=== PATIENT | male | born 1965 | race African-American/Black ===

== ENCOUNTER 2019-03-22 17:59 | Emergency (ER) | payer BC ==
--- NOTE | 2019-03-22 18:55 | RAD ---
Chest 2 views HISTORY: Chest pain. FINDINGS: Cardiac silhouette is magnified by projection. Pulmonary vasculature is unremarkable. Media stinum is midline. No space consolidation, pneumothorax, or pleural fluid. Ossification of the anterior longitudinal ligament of the thoracic spine on the lateral view is consistent with diffuse i diopathic skeletal hyperostosis. environmental monitoring specialist leads overlie the chest. IMPRESSION: No active cardiopulmonary abnormalities are demonstrated.
[2019-03-22 19:21] LABS: #Eosinphils 0.1 thou/uL (0.0-0.7); #Lymphocytes 2.2 thou/uL (1.20-3.40); #Monocytes 0.5 thou/uL (0.11-0.59); #Neutrophils 2.1 thou/uL (1.40-6.50); %Basophils 0.9 % (0.0-1.0); %Eosinophils 1.5 % (0.0-10.0); %Monocytes 9.4 % (0.0-10.0); %Neutrophils 43.2 % (42.0-75.0); Hemoglobin 12.7 g/dL (14.0-18.0); Mean Corpuscular HGB CONC 34.2 g/dL (32.0-36.0); Mean Corpuscular Hemoglobin 29.7 pg (27.0-31.0); Mean Corpuscular Volume 86.9 fL (78.0-98.0); Platelet Count 185 thou/uL (130-400); RBC Distribution Width 11.9 % (11.5-14.5); Red Blood Cell (RBC) Count 4.28 mill/uL (4.70-6.10); White Blood Cell (WBC) Count 4.9 thou/uL (4.8-10.8)
[2019-03-22 19:34] LABS: ALT (SGPT) 19 U/L (8-55); AST (SGOT) 18 U/L (5-34); Albumin 3.9 g/dL (3.5-5.0); Alkaline Phosphatase 95 U/L (40-150); Anion Gap 13 mmol/L (10-20); BUN (Urea Nitrogen) 15 mg/dL (8.4-25.7); Bilirubin, Total 0.6 mg/dL (0.2-1.2); Calc. Creatinine Clearance 0 mL/min (70-130); Calcium 9.1 mg/dL (7.8-10.44); Carbon Dioxide 27 mmol/L (22-29); Chloride 103 mmol/L (98-107); Estimated GFR-MDRD 60; Globulin 3.7 g/dL (2.4-3.5); Glucose 109 mg/dL (70-105); Lipase 34 U/L (8-78); Potassium 3.3 mmol/L (3.5-5.1); Protein, Total 7.6 g/dL (6.0-8.3); Sodium 140 mmol/L (136-145)
[2019-03-22] MEDS ORDERED: Nitroglycerin 2% Ointment 1 INCH/1 GM Packet ONE (19:45)
[2019-03-22] MEDS ORDERED: Aspirin Chewable 81 MG TAB ONE (19:45)
[2019-03-22 20:25] LABS: Troponin I Less than 0.010 ng/mL (< 0.028)
--- NOTE | 2019-03-25 14:44 | EKG ---
Test Reason : Blood Pressure : / mmHG Vent. Rate : 052 BPM Atrial Rate : 052 BPM P-R Int : 184 ms QRS Dur : 098 ms QT Int : 426 ms P-R-T Axes : 047 021 -08 degrees QTc Int : 396 ms Sinus bradycardia Inverted T in III Otherwise normal ECG Confirmed by GAEL IYER, KATJA ([id number]), associate entertainment editor RYAN ORTIZ ([id number] on 03/25/2019 2:44:26 PM Referred By: Confirmed By:KATJA MAYO MD
== END 2019-03-22 20:45 | disposition home or self-care (01) ==
LOC: SCSER 17:59
DX: R07.89 Other chest pain (principal); E78.5 Hyperlipidemia, unspecified; I10 Essential (primary) hypertension; F17.210 Nicotine dependence, cigarettes, uncomplicated
CPT/HCPCS: 71046; 80053; 83690; 83880; 84484; 85025; 93005

== ENCOUNTER 2020-09-24 08:32 | Outpatient (CLI) | payer BC | END 2020-09-24 08:33 | disposition home or self-care (01) | LOC: BICMAMMO 08:32 | PROVIDERS: ATTEND Family Medicine | DX: N63.20 Unspecified lump in the left breast, unspecified quadrant (principal) | CPT/HCPCS: 77066; G0279 ==

== ENCOUNTER 2021-03-29 07:48 | Outpatient (CLI) | payer BC | END 2021-03-29 07:49 | disposition home or self-care (01) | LOC: BICULT 07:48 | PROVIDERS: ATTEND Internal Medicine Nephrology | DX: N18.30 Chronic kidney disease, stage 3 unspecified (principal) | CPT/HCPCS: 76770; 93975 ==

== ENCOUNTER 2021-06-30 08:36 | Emergency (ER) | payer BC, OTHER ==
[2021-06-30] MEDS ORDERED: Ketorolac Tromethamine 30 MG/ML VIAL ONE (09:07)
== END 2021-06-30 09:32 | disposition home or self-care (01) ==
LOC: ERS 08:36
DX: M25.511 Pain in right shoulder (principal); E78.5 Hyperlipidemia, unspecified; I10 Essential (primary) hypertension; F17.290 Nicotine dependence, other tobacco product, uncomplicated; Z79.899 Other long term (current) drug therapy
CPT/HCPCS: 96372; J1885

== ENCOUNTER 2021-08-02 09:24 | Outpatient (CLI) | payer BC ==
[2021-08-02] MEDS ORDERED: Iopamidol 370 76% 100 ML VIAL ONE (13:41)
== END 2021-08-02 09:25 | disposition home or self-care (01) ==
LOC: CT 09:24
PROVIDERS: ATTEND Urology
DX: N28.89 Other specified disorders of kidney and ureter (principal); N62 Hypertrophy of breast
CPT/HCPCS: 71260; 74160; 78306; A9503; Q9967

== ENCOUNTER 2021-08-24 11:02 | Outpatient (CLI) | payer BC ==
[2021-08-25 00:13] LABS: SARS-CoV-2 PCR by NAA Not Detected (NotDetected)
== END 2021-08-24 11:03 | disposition home or self-care (01) ==
LOC: LABBT 11:02
PROVIDERS: ATTEND Urology
DX: Z01.818 Encounter for other preprocedural examination (principal); Z12.5 Encounter for screening for malignant neoplasm of prostate; N28.9 Disorder of kidney and ureter, unspecified; N20.0 Calculus of kidney; N40.1 Benign prostatic hyperplasia with lower urinary tract symptoms; R35.0 Frequency of micturition; I12.9 Hypertensive chronic kidney disease with stage 1 through stage 4 chronic kidney disease, or unspecified chronic kidney disease; N18.9 Chronic kidney disease, unspecified; N28.89 Other specified disorders of kidney and ureter; R74.8 Abnormal levels of other serum enzymes; N62 Hypertrophy of breast; Z20.822 Contact with and (suspected) exposure to COVID-19
CPT/HCPCS: 71046; 80048; 81001; 85027; 85610; 85730; 86850; 86900; 86901; 87086; 93005; 93010; U0003; U0005

== ENCOUNTER 2021-08-24 11:15 | Inpatient (IN) | payer BC ==
[2021-08-23 12:59] VITALS: BMI 35.2
[2021-08-24 12:10] LABS: Hemoglobin 12.5 g/dL (13.5-17.5); Mean Corpuscular HGB CONC 32.9 g/dL (32.0-36.0); Mean Corpuscular Volume 85.2 fl (81.2-95.1); Mean Platelet Volume 10.9 fl (7.4-10.4); Platelet Count 208 10x3/uL (150-450); RBC Distribution Width 13.2 % (11.5-14.5); Red Blood Cell (RBC) Count 4.46 10x6/uL (4.32-5.72)
[2021-08-24 12:31] LABS: Anion Gap 12 mmol/L (10-20); BUN (Urea Nitrogen) 11 mg/dL (8.4-25.7); Calc. Creatinine Clearance 0 mL/min (70-130); Carbon Dioxide 27 mmol/L (22-29); Chloride 103 mmol/L (98-107); Glucose 122 mg/dL (70-105); Potassium 3.3 mmol/L (3.5-5.1); Sodium 139 mmol/L (136-145)
[2021-08-24 12:57] LABS: INR-International Normal Ratio 0.9; PTT 24.1 sec (22.0-33.0); Prothrombin Time 10.4 sec (9.5-12.1)
[2021-08-24 13:02] LABS: Bilirubin Neg (Negative); Blood, Urine 10 (Negative); Clarity Clear (Clear); Glucose, Urine (Dipstick) Normal (Negative); Ketone, Urine Negative (Negative); Leukocyte Negative (Negative); Nitrite Negative (Negative); Protein, Urine (Dipstick) 30 mg/dl (Neg-Trace); Urobilinogen Normal mg/dL (Less than 2)
[2021-08-24 13:10] LABS: Bacteria/HPF Rare-Few HPF (None Seen); Mucous/LPF Few LPF (<2+); RBC/HPF 0-3 HPF (0-3); Squamous Epithelial 0-3 HPF (0-3); Transitional Epithelial 0-3 HPF (None Seen); WBC/HPF None Seen HPF (0-3)
[2021-08-29] MEDS ORDERED: ceFAZolin 2 GM/DEX 5% 100 ML BAG ONE (06:20)
[2021-08-29] MEDS ORDERED: Levofloxacin 500 mg/D5W 100 ml Premix Bag ONE (06:21)
[2021-08-29] MEDS ORDERED: SUGAMMADEX SODIUM 200 MG/2 ML VIAL ONE (06:24)
[2021-08-29] MEDS ORDERED: Famotidine/PF 20 mg/2ml Vial ONE (06:24)
[2021-08-29] MEDS ORDERED: Fentanyl 100 MCG/2 ML VIAL ONE ×3 (06:24→07:34)
[2021-08-29] MEDS ORDERED: Gentamicin 80 MG/2 ML VIAL ONE ×2 (06:35→06:43)
[2021-08-29] MEDS ORDERED: Methylene Blue 50 MG/10 ML AMPUL ONE (06:35)
[2021-08-29] MEDS ORDERED: Midazolam HCl 2 mg/2 ml Vial ONE (06:54)
[2021-08-29] MEDS ORDERED: Labetalol HCl 100 MG/20 ML VIAL ONE (07:10)
[2021-08-29] MEDS ORDERED: Dexamethasone 20 MG/5 ML VIAL ONE (07:10)
[2021-08-29] MEDS ORDERED: Lidocaine 1.5% w/Epi 1:200K 30 ML VIAL (Epid Use) ONE (07:10)
[2021-08-29] MEDS ORDERED: PROPOFOL 200 MG/20 ML VIAL ONE (07:10)
[2021-08-29] MEDS ORDERED: Lidocaine 1% PF 5 ML VIAL ONE ×2 (07:10)
[2021-08-29] MEDS ORDERED: Phenylephrine 10 MG/ML VIAL ONE ×2 (07:10→07:22)
[2021-08-29] MEDS ORDERED: Rocuronium Bromide 10 MG/ML (10ML VIAL) ONE (07:10)
[2021-08-29] MEDS ORDERED: Ondansetron PF 4 MG/2 ML Vial ONE (07:10)
[2021-08-29] MEDS ORDERED: Bupivacaine 0.25% 10 ML VIAL ONE ×2 (07:16)
[2021-08-29] MEDS ORDERED: Naloxone HCl 0.4 mg/ml Vial IVP PRN (08:00)
[2021-08-29] MEDS ORDERED: HYDROcodone/Acetaminophen 5/325 mg Tablet PO PRN (08:00)
[2021-08-29] MEDS ORDERED: diphenhydrAMINE 50 MG/ML VIAL IVP PRN ×2 (08:00→09:53)
[2021-08-29] MEDS ORDERED: Naloxone HCl 0.4 mg/ml Vial IV PRN (08:00)
[2021-08-29] MEDS ORDERED: Hydrocerin (Eucerin) Cream 120 gm Jar TOP PRN (08:00)
[2021-08-29] MEDS ORDERED: diphenhydrAMINE 50 MG/ML VIAL IM PRN (08:00)
[2021-08-29] MEDS ORDERED: Promethazine HCl 25 MG SUPP PR PRN (08:00)
[2021-08-29] MEDS ORDERED: Bupivacaine 0.25% 10 ML VIAL EPIDURAL PRN (08:00)
[2021-08-29] MEDS ORDERED: traMADol HCl 50 MG TAB PO PRN ×2 (08:00)
[2021-08-29] MEDS ORDERED: Promethazine HCl 25 MG/ML VIAL IM PRN ×2 (08:00→09:09)
[2021-08-29] MEDS ORDERED: Promethazine HCl 25 MG/ML VIAL IVPB PRN (09:09)
[2021-08-29] MEDS ORDERED: HYDROmorphone 2 MG/ML VIAL SLOW IVP PRN (09:09)
[2021-08-29] MEDS ORDERED: Meperidine HCl/PF 25 MG/ML VIAL SLOW IVP PRN (09:09)
[2021-08-29] MEDS ORDERED: Ondansetron PF 4 MG/2 ML Vial IVP PRN (09:53)
[2021-08-29] MEDS ORDERED: Mag-Al 1200 mg/1200 mg/30 ML UDCUP PO PRN (09:53)
[2021-08-29] MEDS ORDERED: D5 1/2 NS w/20 mEq KCL 1,000 ML IV SCH (10:00)
[2021-08-29] MEDS ORDERED: Sodium Chloride 0.9% 1,000 ML IV SCH (10:15)
[2021-08-29 10:29] LABS: #Basophils 0.1 thou/uL (0.0-0.2); #Lymphocytes 1.8 thou/uL (1.20-3.40); #Monocytes 0.6 thou/uL (0.11-0.59); #Neutrophils 5.5 thou/uL (1.40-6.50); %Basophils 0.6 % (0.0-1.0); %Eosinophils 0.3 % (0.0-10.0); %Lymphocytes 22.4 % (21.0-51.0); %Monocytes 7.8 % (0.0-10.0); %Neutrophils 68.9 % (42.0-75.0); Hemoglobin 11.8 g/dL (14.0-18.0); Mean Corpuscular Volume 88.3 fL (78.0-98.0); Platelet Count 137 thou/uL (130-400); RBC Distribution Width 12.3 % (11.5-14.5); Red Blood Cell (RBC) Count 3.93 mill/uL (4.70-6.10)
[2021-08-29 10:51] LABS: Anion Gap 15 mmol/L (10-20); BUN (Urea Nitrogen) 18 mg/dL (8.4-25.7); Calc. Creatinine Clearance 66 mL/min (70-130); Calcium 8.3 mg/dL (7.8-10.44); Carbon Dioxide 28 mmol/L (22-29); Chloride 102 mmol/L (98-107); Glucose 147 mg/dL (70-105); Potassium 3.1 mmol/L (3.5-5.1); Sodium 142 mmol/L (136-145)
[2021-08-29] MEDS: HYDROcodone/Acetaminophen 5/325 mg Tablet PO PRN ×2 (12:26→20:41)
[2021-08-29] MEDS: NS 0.9% w/ 20 MEQ KCL 1,000 ML IV SCH ×2 (12:27→23:46)
[2021-08-29] MEDS ORDERED: Potassium Chloride 20 MEQ TAB PO SCH (12:30)
[2021-08-29] MEDS ORDERED: Non-Formulary Item 1 EACH (Hydralazine Hcl [Hydralazine Hcl] 50 MG Tablet) PO SCH (15:00)
[2021-08-29] MEDS: hydrALAZINE 25 MG TAB PO SCH ×2 (15:51→20:08)
[2021-08-29] MEDS: CEFAZOLIN 1 GM in Sodium Chloride 0.9% 100 ML IVPB SCH ×2 (15:51→21:30)
[2021-08-29] MEDS ORDERED: cloNIDine 0.1 MG TAB PO SCH (19:45)
[2021-08-29] MEDS: Rosuvastatin 20 MG TAB PO SCH (20:07)
[2021-08-29] MEDS: Docusate 100 MG CAP PO SCH (20:07)
[2021-08-29] MEDS: Famotidine/PF 20 mg/2ml Vial SLOW IVP SCH (20:07)
[2021-08-29] MEDS: Carvedilol 25 MG TAB PO SCH (20:08)
[2021-08-29] MEDS: Ondansetron PF 4 MG/2 ML Vial IVP PRN (21:25)
[2021-08-29] MEDS: fentaNYL Citrate/PF 500 MCG, Bupivacaine 10 ML in Sodium Chloride 0.9% 80 ML EPIDURAL SCH (21:44)
[2021-08-30] MEDS: CEFAZOLIN 1 GM in Sodium Chloride 0.9% 100 ML IVPB SCH ×2 (05:56→14:23)
[2021-08-30 06:22] LABS: #Lymphocytes 1.4 thou/uL (1.20-3.40); #Monocytes 0.8 thou/uL (0.11-0.59); #Neutrophils 3.9 thou/uL (1.40-6.50); %Basophils 0.1 % (0.0-1.0); %Eosinophils 0.1 % (0.0-10.0); %Lymphocytes 22.5 % (21.0-51.0); %Monocytes 12.8 % (0.0-10.0); %Neutrophils 64.5 % (42.0-75.0); Hemoglobin 11.4 g/dL (14.0-18.0); Mean Corpuscular HGB CONC 34.1 g/dL (32.0-36.0); Mean Corpuscular Volume 87.9 fL (78.0-98.0); Mean Platelet Volume 8.3 fL (7.4-10.4); Platelet Count 136 thou/uL (130-400); RBC Distribution Width 12.2 % (11.5-14.5); White Blood Cell (WBC) Count 6.1 thou/uL (4.8-10.8)
[2021-08-30] MEDS: NS 0.9% w/ 20 MEQ KCL 1,000 ML IV SCH ×3 (06:42→21:30)
[2021-08-30 06:46] LABS: Anion Gap 14 mmol/L (10-20); BUN (Urea Nitrogen) 24 mg/dL (8.4-25.7); Calc. Creatinine Clearance 45 mL/min (70-130); Calcium 8.4 mg/dL (7.8-10.44); Carbon Dioxide 28 mmol/L (22-29); Chloride 101 mmol/L (98-107); Glucose 127 mg/dL (70-105); Potassium 3.6 mmol/L (3.5-5.1); Sodium 139 mmol/L (136-145)
[2021-08-30] MEDS: fentaNYL Citrate/PF 500 MCG, Bupivacaine 10 ML in Sodium Chloride 0.9% 80 ML EPIDURAL SCH ×2 (07:59→17:15)
[2021-08-30] MEDS: hydrALAZINE 25 MG TAB PO SCH ×3 (08:09→21:10)
[2021-08-30] MEDS: Docusate 100 MG CAP PO SCH ×2 (08:10→21:10)
[2021-08-30] MEDS: Carvedilol 25 MG TAB PO SCH ×2 (08:10→21:10)
[2021-08-30] MEDS: Potassium Chloride 20 MEQ TAB PO SCH (08:10)
[2021-08-30] MEDS: Famotidine/PF 20 mg/2ml Vial SLOW IVP SCH (08:10)
[2021-08-30] MEDS ORDERED: Amlodipine 5 MG TAB PO SCH ×2 (09:00→13:03)
[2021-08-30] MEDS: HYDROcodone/Acetaminophen 5/325 mg Tablet PO PRN ×3 (09:55→23:31)
[2021-08-30] MEDS ORDERED: Amlodipine 10 MG TAB PO SCH (13:15)
[2021-08-30] MEDS: Ondansetron PF 4 MG/2 ML Vial IVP PRN (15:01)
[2021-08-30] MEDS: Dextrose 5 % And 0.9 % NaCl 1,000 ML IV SCH ×2 (19:32→21:09)
[2021-08-30] MEDS: Rosuvastatin 20 MG TAB PO SCH (21:09)
[2021-08-31] MEDS: Dextrose 5 % And 0.9 % NaCl 1,000 ML IV SCH ×2 (02:36→02:58)
[2021-08-31] MEDS: fentaNYL Citrate/PF 500 MCG, Bupivacaine 10 ML in Sodium Chloride 0.9% 80 ML EPIDURAL SCH ×2 (02:36→14:23)
[2021-08-31 04:28] LABS: #Lymphocytes 1.2 thou/uL (1.20-3.40); #Monocytes 0.6 thou/uL (0.11-0.59); #Neutrophils 4.9 thou/uL (1.40-6.50); %Basophils 0.5 % (0.0-1.0); %Eosinophils 0.2 % (0.0-10.0); %Lymphocytes 17.9 % (21.0-51.0); %Monocytes 8.5 % (0.0-10.0); %Neutrophils 72.9 % (42.0-75.0); Hemoglobin 10.6 g/dL (14.0-18.0); Mean Corpuscular HGB CONC 34.5 g/dL (32.0-36.0); Mean Corpuscular Hemoglobin 30.6 pg (27.0-31.0); Mean Corpuscular Volume 88.6 fL (78.0-98.0); Mean Platelet Volume 8.4 fL (7.4-10.4); Platelet Count 115 thou/uL (130-400); RBC Distribution Width 12.4 % (11.5-14.5); Red Blood Cell (RBC) Count 3.45 mill/uL (4.70-6.10); White Blood Cell (WBC) Count 6.7 thou/uL (4.8-10.8)
[2021-08-31 04:55] LABS: Anion Gap 11 mmol/L (10-20); BUN (Urea Nitrogen) 29 mg/dL (8.4-25.7); Calc. Creatinine Clearance 39 mL/min (70-130); Calcium 8.2 mg/dL (7.8-10.44); Carbon Dioxide 27 mmol/L (22-29); Chloride 104 mmol/L (98-107); Glucose 143 mg/dL (70-105); Potassium 3.8 mmol/L (3.5-5.1); Sodium 138 mmol/L (136-145)
[2021-08-31] MEDS: Acetaminophen 500 MG TAB PO PRN ×2 (08:19→16:08)
[2021-08-31] MEDS: hydrALAZINE 25 MG TAB PO SCH ×3 (08:21→20:26)
[2021-08-31] MEDS: Docusate 100 MG CAP PO SCH ×2 (08:22→20:26)
[2021-08-31] MEDS: Potassium Chloride 20 MEQ TAB PO SCH (08:22)
[2021-08-31] MEDS: Carvedilol 25 MG TAB PO SCH ×2 (08:23→20:26)
[2021-08-31] MEDS: Famotidine/PF 20 mg/2ml Vial SLOW IVP SCH (08:23)
[2021-08-31] MEDS: Amlodipine 5 MG TAB PO SCH (08:23)
[2021-08-31] MEDS ORDERED: Amlodipine 10 MG TAB PO SCH ×2 (09:00)
[2021-08-31] MEDS ORDERED: Albumin 25% 25 GM/100 ML BOT IVPB SCH (09:00)
[2021-08-31] MEDS: Ondansetron PF 4 MG/2 ML Vial IVP PRN (10:52)
[2021-08-31] MEDS: Sodium Chloride 0.45% 1,000 ML IV SCH ×2 (11:01→17:15)
[2021-08-31] MEDS: Albumin 25% 25 GM/100 ML BOT IVPB SCH ×2 (16:00→20:26)
[2021-08-31 17:28] LABS: SARS-CoV-2 PCR by NAA DETECTED (NotDetected)
[2021-08-31] MEDS: Rosuvastatin 20 MG TAB PO SCH (20:26)
[2021-09-01] MEDS: fentaNYL Citrate/PF 500 MCG, Bupivacaine 10 ML in Sodium Chloride 0.9% 80 ML EPIDURAL SCH ×2 (00:22→14:48)
[2021-09-01] MEDS: Acetaminophen 500 MG TAB PO PRN ×3 (00:37→14:50)
[2021-09-01] MEDS: Albumin 25% 25 GM/100 ML BOT IVPB SCH (03:11)
[2021-09-01] MEDS: Sodium Chloride 0.45% 1,000 ML IV SCH ×2 (05:03→16:18)
[2021-09-01 07:04] LABS: #Lymphocytes 1.4 thou/uL (1.20-3.40); #Monocytes 0.4 thou/uL (0.11-0.59); %Basophils 0.1 % (0.0-1.0); %Eosinophils 0.2 % (0.0-10.0); %Lymphocytes 15.8 % (21.0-51.0); %Monocytes 4.5 % (0.0-10.0); %Neutrophils 79.4 % (42.0-75.0); Mean Corpuscular HGB CONC 34.1 g/dL (32.0-36.0); Mean Corpuscular Hemoglobin 30.1 pg (27.0-31.0); Mean Corpuscular Volume 88.2 fL (78.0-98.0); Mean Platelet Volume 8.4 fL (7.4-10.4); Platelet Count 109 thou/uL (130-400); RBC Distribution Width 12.5 % (11.5-14.5); Red Blood Cell (RBC) Count 3.33 mill/uL (4.70-6.10); White Blood Cell (WBC) Count 8.8 thou/uL (4.8-10.8)
[2021-09-01 07:30] LABS: ALT (SGPT) 21 U/L (8-55); AST (SGOT) 51 U/L (5-34); Albumin 3.8 g/dL (3.5-5.0); Alkaline Phosphatase 67 U/L (40-110); Anion Gap 12 mmol/L (10-20); BUN (Urea Nitrogen) 36 mg/dL (8.4-25.7); Bilirubin, Total 0.5 mg/dL (0.2-1.2); Calc. Creatinine Clearance 31 mL/min (70-130); Calcium 8.8 mg/dL (7.8-10.44); Carbon Dioxide 27 mmol/L (22-29); Chloride 105 mmol/L (98-107); Glucose 104 mg/dL (70-105); Protein, Total 6.8 g/dL (6.0-8.3); Sodium 140 mmol/L (136-145)
[2021-09-01] MEDS: Docusate 100 MG CAP PO SCH ×2 (08:28→20:05)
[2021-09-01] MEDS: Carvedilol 25 MG TAB PO SCH ×2 (08:28→20:06)
[2021-09-01] MEDS: Potassium Chloride 20 MEQ TAB PO SCH (08:28)
[2021-09-01] MEDS: Amlodipine 5 MG TAB PO SCH (08:28)
[2021-09-01] MEDS: hydrALAZINE 25 MG TAB PO SCH ×3 (08:28→20:06)
[2021-09-01] MEDS: Famotidine/PF 20 mg/2ml Vial SLOW IVP SCH (08:28)
[2021-09-01] MEDS ORDERED: Enoxaparin Sodium 30 MG/0.3 ML SYRINGE SC SCH (09:00)
[2021-09-01] MEDS ORDERED: Dexamethasone 4 MG TAB PO SCH (13:30)
[2021-09-01] MEDS: Sodium Chloride 0.9% 1,000 ML IV SCH (16:17)
[2021-09-01] MEDS: Dexamethasone 4 MG TAB PO SCH (17:08)
[2021-09-01 17:54] LABS: Bilirubin Negative (Negative); Blood, Urine 1+ (Negative); Clarity Turbid (Clear); Glucose, Urine (Dipstick) Normal (Negative); Ketone, Urine Negative (Negative); Leukocyte Negative Leu/uL (Negative); Nitrite Negative (Negative); Protein, Urine (Dipstick) 70 mg/dL (Neg-Trace); RBC/HPF 0-3 HPF (0-3); Specific Gravity, Urine 1.014 (1.002-1.036); Squamous Epithelial None Seen HPF (0-3); Urobilinogen Normal mg/dL (Less than 2); WBC/HPF 0-3 HPF (0-3); pH, Urine 5.5 (5.0-9.0)
[2021-09-01 17:55] LABS: Bacteria/HPF 1+ HPF (None Seen)
[2021-09-01] MEDS ORDERED: Naloxone HCl 0.4 mg/ml Vial IVP SCH (18:30)
[2021-09-01 18:51] LABS: Actual Bicarbonate (HCO3a) 25.6 mEq/L (22-28); Base Excess (BEa) 0.2 mEq/L (-2.0 to +3.0); CO2 Tension 44.6 mmHg (35.0-45.0); Calcium, Ionized (arterial) 1.15 mmol/L (1.12-1.30); Carboxyhemoglobin (COHb) 0.3 gm% (0.0-3.0); Hemoglobin (Hb) 11.2 g/dL (14.0-18.0); O2 Tension (PaO2), arterial 93.8 mmHg (80.0-100.0); Potassium - ABG Lab 4.04 mmol/L (3.70-5.30); pH, Arterial 7.38 (7.35-7.45)
[2021-09-01 18:52] LABS: Puncture Site RRA
[2021-09-01] MEDS: Rosuvastatin 20 MG TAB PO SCH (20:05)
[2021-09-01] MEDS ORDERED: Heparin 5,000 UNITS/ML VIAL SC SCH (21:00)
[2021-09-02] MEDS: Bupivacaine 10 ML in Sodium Chloride 0.9% 90 ML EPIDURAL SCH ×2 (01:43→14:55)
[2021-09-02] MEDS: Sodium Chloride 0.9% 1,000 ML IV SCH ×4 (03:39→23:54)
[2021-09-02] MEDS: Docusate 100 MG CAP PO SCH ×2 (08:03→20:33)
[2021-09-02] MEDS: Amlodipine 5 MG TAB PO SCH (08:03)
[2021-09-02] MEDS: Carvedilol 25 MG TAB PO SCH ×2 (08:03→20:33)
[2021-09-02] MEDS: Potassium Chloride 20 MEQ TAB PO SCH (08:03)
[2021-09-02] MEDS: Heparin 5,000 UNITS/ML VIAL SC SCH ×2 (08:06→20:34)
[2021-09-02] MEDS: Famotidine/PF 20 mg/2ml Vial SLOW IVP SCH (08:06)
[2021-09-02] MEDS: hydrALAZINE 25 MG TAB PO SCH ×3 (08:06→20:33)
[2021-09-02] MEDS: Dexamethasone 4 MG TAB PO SCH ×2 (08:06→17:30)
[2021-09-02 09:08] LABS: Hemoglobin 10.6 g/dL (14.0-18.0); Mean Corpuscular HGB CONC 33.5 g/dL (32.0-36.0); Mean Corpuscular Hemoglobin 29.6 pg (27.0-31.0); Mean Corpuscular Volume 88.2 fL (78.0-98.0); Mean Platelet Volume 9.1 fL (7.4-10.4); Platelet Count 142 thou/uL (130-400); RBC Distribution Width 12.5 % (11.5-14.5); Red Blood Cell (RBC) Count 3.59 mill/uL (4.70-6.10); White Blood Cell (WBC) Count 11.8 thou/uL (4.8-10.8)
[2021-09-02 09:22] LABS: Band 34 % (5-11); Lymphocytes 12 % (21-51); MDiff Complete? YES; Neutrophil 54 % (42-75); Platelet Morphology Comment Appears Adequate; Polychromasia SLIGHT = 2-3 cells (100X) (0-2/hpf)
[2021-09-02 09:25] LABS: Anion Gap 15 mmol/L (10-20); BUN (Urea Nitrogen) 46 mg/dL (8.4-25.7); Calc. Creatinine Clearance 29 mL/min (70-130); Calcium 9.3 mg/dL (7.8-10.44); Carbon Dioxide 22 mmol/L (22-29); Chloride 107 mmol/L (98-107); Glucose 156 mg/dL (70-105); Potassium 4.1 mmol/L (3.5-5.1); Sodium 140 mmol/L (136-145)
[2021-09-02] MEDS: Rosuvastatin 20 MG TAB PO SCH (20:33)
[2021-09-03] MEDS: Bupivacaine 10 ML in Sodium Chloride 0.9% 90 ML EPIDURAL SCH ×3 (00:28→12:20)
[2021-09-03] MEDS: Ondansetron PF 4 MG/2 ML Vial IVP PRN (01:10)
[2021-09-03 07:37] LABS: Anion Gap 14 mmol/L (10-20); BUN (Urea Nitrogen) 53 mg/dL (8.4-25.7); Calc. Creatinine Clearance 32 mL/min (70-130); Calcium 9.1 mg/dL (7.8-10.44); Carbon Dioxide 22 mmol/L (22-29); Chloride 108 mmol/L (98-107); Glucose 181 mg/dL (70-105); Sodium 140 mmol/L (136-145)
[2021-09-03 07:50] LABS: Hemoglobin 11.3 g/dL (14.0-18.0); Mean Corpuscular HGB CONC 34.6 g/dL (32.0-36.0); Mean Corpuscular Hemoglobin 30.3 pg (27.0-31.0); Mean Corpuscular Volume 87.4 fL (78.0-98.0); Mean Platelet Volume 8.7 fL (7.4-10.4); Platelet Count 211 thou/uL (130-400); RBC Distribution Width 12.6 % (11.5-14.5); Red Blood Cell (RBC) Count 3.74 mill/uL (4.70-6.10)
[2021-09-03] MEDS: Amlodipine 5 MG TAB PO SCH (08:31)
[2021-09-03] MEDS: hydrALAZINE 25 MG TAB PO SCH ×3 (08:31→20:48)
[2021-09-03] MEDS: Dexamethasone 4 MG TAB PO SCH ×2 (08:31→17:53)
[2021-09-03] MEDS: Sodium Chloride 0.9% 1,000 ML IV SCH (08:32)
[2021-09-03] MEDS: Potassium Chloride 20 MEQ TAB PO SCH (08:32)
[2021-09-03] MEDS: Famotidine/PF 20 mg/2ml Vial SLOW IVP SCH (08:32)
[2021-09-03] MEDS: Carvedilol 25 MG TAB PO SCH ×2 (08:32→20:47)
[2021-09-03] MEDS: Heparin 5,000 UNITS/ML VIAL SC SCH ×2 (08:32→20:48)
[2021-09-03] MEDS: Docusate 100 MG CAP PO SCH ×2 (08:32→20:47)
[2021-09-03 08:58] LABS: Band 22 % (5-11); Lymphocytes 9 % (21-51); MDiff Complete? YES; Monocytes 4 % (0-10); Myelocyte 1 % (0-0); Neutrophil 62 % (42-75); Platelet Morphology Comment Appears Adequate; RBC Morphology Normal; Reactive Lymphocytes 2 % (0-10)
[2021-09-03] MEDS ORDERED: Furosemide 100 MG/10 ML VIAL SLOW IVP SCH (14:45)
[2021-09-03] MEDS: ALPRAZolam 0.25 MG TAB PO PRN (15:34)
[2021-09-03] MEDS: Rosuvastatin 20 MG TAB PO SCH (20:47)
[2021-09-04] MEDS: Heparin 5,000 UNITS/ML VIAL SC SCH ×2 (08:21→20:56)
[2021-09-04] MEDS: hydrALAZINE 25 MG TAB PO SCH ×3 (08:22→20:55)
[2021-09-04] MEDS: Docusate 100 MG CAP PO SCH ×2 (08:22→20:55)
[2021-09-04] MEDS: Potassium Chloride 20 MEQ TAB PO SCH (08:22)
[2021-09-04] MEDS: Dexamethasone 4 MG TAB PO SCH ×2 (08:22→17:10)
[2021-09-04] MEDS: Famotidine/PF 20 mg/2ml Vial SLOW IVP SCH (08:23)
[2021-09-04] MEDS: Bupivacaine 10 ML in Sodium Chloride 0.9% 90 ML EPIDURAL SCH ×2 (08:24→20:59)
[2021-09-04] MEDS: Carvedilol 25 MG TAB PO SCH ×2 (08:24→20:56)
[2021-09-04] MEDS: Amlodipine 5 MG TAB PO SCH (08:24)
[2021-09-04 12:05] LABS: Anion Gap 18 mmol/L (10-20); BUN (Urea Nitrogen) 67 mg/dL (8.4-25.7); Calc. Creatinine Clearance 28 mL/min (70-130); Calcium 9.1 mg/dL (7.8-10.44); Carbon Dioxide 21 mmol/L (22-29); Chloride 107 mmol/L (98-107); Glucose 165 mg/dL (70-105); Potassium 3.9 mmol/L (3.5-5.1); Sodium 142 mmol/L (136-145)
[2021-09-04 12:11] LABS: Hemoglobin 11.6 g/dL (14.0-18.0); Platelet Count 236 thou/uL (130-400)
[2021-09-04 12:16] LABS: Hemoglobin 11.6 g/dL (14.0-18.0); Mean Corpuscular HGB CONC 34.2 g/dL (32.0-36.0); Mean Corpuscular Hemoglobin 29.9 pg (27.0-31.0); Mean Corpuscular Volume 87.4 fL (78.0-98.0); Mean Platelet Volume 8.2 fL (7.4-10.4); Platelet Count 238 thou/uL (130-400); Red Blood Cell (RBC) Count 3.87 mill/uL (4.70-6.10); White Blood Cell (WBC) Count 16.1 thou/uL (4.8-10.8)
[2021-09-04 13:22] LABS: Band 10 % (5-11); Lymphocytes 6 % (21-51); MDiff Complete? YES; Metamyelocyte 2 % (0-0); Monocytes 3 % (0-10); Myelocyte 2 % (0-0); Neutrophil 77 % (42-75); Platelet Morphology Comment Appears Adequate; Polychromasia SLIGHT = 2-3 cells (100X) (0-2/hpf); Vacuoles SLIGHT
[2021-09-04] MEDS ORDERED: Albumin 25% 25 GM/100 ML BOT IVPB SCH (13:30)
[2021-09-04] MEDS: Albumin 25% 25 GM/100 ML BOT IVPB SCH ×2 (14:47→21:04)
[2021-09-04] MEDS: Rosuvastatin 20 MG TAB PO SCH (20:55)
[2021-09-04] MEDS: ALPRAZolam 0.25 MG TAB PO PRN (20:55)
[2021-09-05] MEDS: Albuterol 200 PUFF (6.7GM INHALER) INH SCH ×6 (02:46→21:50)
[2021-09-05] MEDS: Albumin 25% 25 GM/100 ML BOT IVPB SCH ×3 (02:46→14:04)
[2021-09-05 06:48] LABS: Hemoglobin 10.9 g/dL (14.0-18.0); Mean Corpuscular HGB CONC 35.2 g/dL (32.0-36.0); Mean Corpuscular Hemoglobin 30.4 pg (27.0-31.0); Mean Corpuscular Volume 86.3 fL (78.0-98.0); Mean Platelet Volume 8.4 fL (7.4-10.4); Platelet Count 228 thou/uL (130-400); RBC Distribution Width 12.9 % (11.5-14.5); Red Blood Cell (RBC) Count 3.59 mill/uL (4.70-6.10); White Blood Cell (WBC) Count 15.1 thou/uL (4.8-10.8)
[2021-09-05 06:56] LABS: Anion Gap 18 mmol/L (10-20); BUN (Urea Nitrogen) 71 mg/dL (8.4-25.7); Calc. Creatinine Clearance 26 mL/min (70-130); Calcium 9.2 mg/dL (7.8-10.44); Carbon Dioxide 22 mmol/L (22-29); Chloride 105 mmol/L (98-107); Glucose 177 mg/dL (70-105); Potassium 3.8 mmol/L (3.5-5.1); Sodium 141 mmol/L (136-145)
[2021-09-05 07:01] LABS: Anion Gap 17 mmol/L (10-20); BUN (Urea Nitrogen) 71 mg/dL (8.4-25.7); Calc. Creatinine Clearance 28 mL/min (70-130); Calcium 9.4 mg/dL (7.8-10.44); Carbon Dioxide 23 mmol/L (22-29); Chloride 106 mmol/L (98-107); Glucose 176 mg/dL (70-105); Potassium 3.7 mmol/L (3.5-5.1); Sodium 142 mmol/L (136-145)
[2021-09-05] MEDS ORDERED: HYDROcodone/Acetaminophen 10/325 mg Tablet PO PRN ×2 (07:32)
[2021-09-05] MEDS: Potassium Chloride 20 MEQ TAB PO SCH (08:20)
[2021-09-05] MEDS: Famotidine/PF 20 mg/2ml Vial SLOW IVP SCH (08:20)
[2021-09-05] MEDS: Docusate 100 MG CAP PO SCH ×2 (08:21→20:19)
[2021-09-05] MEDS: Carvedilol 25 MG TAB PO SCH ×2 (08:21→20:19)
[2021-09-05] MEDS: Amlodipine 5 MG TAB PO SCH (08:21)
[2021-09-05] MEDS: hydrALAZINE 25 MG TAB PO SCH ×3 (08:21→20:18)
[2021-09-05] MEDS: Dexamethasone 4 MG TAB PO SCH ×2 (08:22→17:26)
[2021-09-05] MEDS: Sodium Chloride 0.9% 1,000 ML IV SCH ×2 (09:11→17:25)
[2021-09-05 09:57] LABS: Hemoglobin 10.9 g/dL (14.0-18.0); Mean Corpuscular HGB CONC 34.6 g/dL (32.0-36.0); Mean Corpuscular Hemoglobin 30.1 pg (27.0-31.0); Mean Platelet Volume 8.3 fL (7.4-10.4); Platelet Count 239 thou/uL (130-400); RBC Distribution Width 12.9 % (11.5-14.5); Red Blood Cell (RBC) Count 3.63 mill/uL (4.70-6.10); White Blood Cell (WBC) Count 14.9 thou/uL (4.8-10.8)
[2021-09-05 09:57] LABS: Band 11 % (5-11); Lymphocytes 6 % (21-51); MDiff Complete? YES; Metamyelocyte 1 % (0-0); Monocytes 9 % (0-10); Myelocyte 1 % (0-0); Neutrophil 72 % (42-75); Platelet Morphology Comment Appears Adequate; Polychromasia SLIGHT = 2-3 cells (100X) (0-2/hpf)
[2021-09-05 10:00] LABS: Band 13 % (5-11); Lymphocytes 12 % (21-51); MDiff Complete? YES; Metamyelocyte 1 % (0-0); Monocytes 7 % (0-10); Neutrophil 66 % (42-75); Platelet Morphology Comment Appears Adequate; Polychromasia SLIGHT = 2-3 cells (100X) (0-2/hpf); Reactive Lymphocytes 1 % (0-10)
[2021-09-05] MEDS: ALPRAZolam 0.25 MG TAB PO PRN ×2 (10:45→20:19)
[2021-09-05] MEDS: Mometasone 200 MCG/Formoterol 5 MCG 120 PUFF INHALER INH SCH ×2 (10:57→17:27)
[2021-09-05 16:59] LABS: SARS-CoV-2 IgG Spike Ab Interp Non-Reactive (NonReactive); SARS-CoV-2 IgG Spike Conc/Indx 3.1 AU/mL (0.00-50.0)
[2021-09-05] MEDS: Rosuvastatin 20 MG TAB PO SCH (20:18)
[2021-09-05] MEDS: diphenhydrAMINE 25 MG CAP PO PRN (20:19)
[2021-09-05] MEDS: Heparin 5,000 UNITS/ML VIAL SC SCH (20:20)
[2021-09-05] MEDS: Zolpidem Tartrate 5 MG TAB PO PRN ×2 (21:50→23:59)
[2021-09-06] MEDS: Sodium Chloride 0.9% 1,000 ML IV SCH ×3 (00:11→16:42)
[2021-09-06] MEDS: Albuterol 200 PUFF (6.7GM INHALER) INH SCH ×6 (02:34→22:04)
[2021-09-06] MEDS: Mometasone 200 MCG/Formoterol 5 MCG 120 PUFF INHALER INH SCH ×2 (06:37→19:36)
[2021-09-06 06:38] LABS: Band 4 % (5-11); Hemoglobin 10.5 g/dL (14.0-18.0); Lymphocytes 8 % (21-51); MDiff Complete? YES; Mean Corpuscular HGB CONC 34.1 g/dL (32.0-36.0); Mean Corpuscular Hemoglobin 29.6 pg (27.0-31.0); Mean Corpuscular Volume 86.7 fL (78.0-98.0); Mean Platelet Volume 8.1 fL (7.4-10.4); Monocytes 7 % (0-10); Neutrophil 81 % (42-75); Platelet Count 244 thou/uL (130-400); Platelet Morphology Comment Appears Adequate; RBC Distribution Width 12.9 % (11.5-14.5); RBC Morphology Normal; Red Blood Cell (RBC) Count 3.54 mill/uL (4.70-6.10); White Blood Cell (WBC) Count 14.5 thou/uL (4.8-10.8)
[2021-09-06 06:43] LABS: Anion Gap 16 mmol/L (10-20); BUN (Urea Nitrogen) 68 mg/dL (8.4-25.7); Calc. Creatinine Clearance 28 mL/min (70-130); Calcium 8.9 mg/dL (7.8-10.44); Carbon Dioxide 21 mmol/L (22-29); Chloride 110 mmol/L (98-107); Glucose 219 mg/dL (70-105); Potassium 3.9 mmol/L (3.5-5.1); Sodium 143 mmol/L (136-145)
[2021-09-06] MEDS ORDERED: guaiFENesin 200 MG TAB PO PRN (07:30)
[2021-09-06] MEDS: Dexamethasone 4 MG TAB PO SCH (09:19)
[2021-09-06] MEDS: Famotidine/PF 20 mg/2ml Vial SLOW IVP SCH (09:19)
[2021-09-06] MEDS: Docusate 100 MG CAP PO SCH ×2 (09:20→20:22)
[2021-09-06] MEDS: Carvedilol 25 MG TAB PO SCH ×2 (09:20→20:22)
[2021-09-06] MEDS: hydrALAZINE 25 MG TAB PO SCH ×3 (09:20→20:22)
[2021-09-06] MEDS: Amlodipine 5 MG TAB PO SCH (09:20)
[2021-09-06] MEDS: Potassium Chloride 20 MEQ TAB PO SCH (09:21)
[2021-09-06] MEDS: Heparin 5,000 UNITS/ML VIAL SC SCH ×2 (09:21→20:25)
[2021-09-06] MEDS: Tamsulosin HCl 0.4 MG CAP PO SCH (09:21)
[2021-09-06] MEDS ORDERED: Polyethylene Glycol 3350 17 GM Packet PO PRN (17:09)
[2021-09-06] MEDS: ALPRAZolam 0.25 MG TAB PO PRN (20:23)
[2021-09-06] MEDS: Zolpidem Tartrate 5 MG TAB PO PRN (20:23)
[2021-09-06] MEDS: Rosuvastatin 20 MG TAB PO SCH (20:23)
[2021-09-06] MEDS: diphenhydrAMINE 25 MG CAP PO PRN (20:23)
[2021-09-07] MEDS: Sodium Chloride 0.9% 1,000 ML IV SCH ×3 (00:20→17:15)
[2021-09-07] MEDS: Albuterol 200 PUFF (6.7GM INHALER) INH SCH ×6 (03:03→22:18)
[2021-09-07] MEDS: Mometasone 200 MCG/Formoterol 5 MCG 120 PUFF INHALER INH SCH ×2 (06:04→17:55)
[2021-09-07 07:00] LABS: Anion Gap 16 mmol/L (10-20); BUN (Urea Nitrogen) 62 mg/dL (8.4-25.7); Calc. Creatinine Clearance 32 mL/min (70-130); Calcium 8.9 mg/dL (7.8-10.44); Carbon Dioxide 20 mmol/L (22-29); Chloride 112 mmol/L (98-107); Glucose 262 mg/dL (70-105); Potassium 4.1 mmol/L (3.5-5.1); Sodium 144 mmol/L (136-145)
[2021-09-07 07:02] LABS: Hemoglobin 10.8 g/dL (14.0-18.0); Mean Corpuscular Hemoglobin 30.1 pg (27.0-31.0); Mean Platelet Volume 8.1 fL (7.4-10.4); Platelet Count 261 thou/uL (130-400); RBC Distribution Width 12.9 % (11.5-14.5); Red Blood Cell (RBC) Count 3.58 mill/uL (4.70-6.10); White Blood Cell (WBC) Count 12.3 thou/uL (4.8-10.8)
[2021-09-07 07:36] LABS: Band 7 % (5-11); Lymphocytes 8 % (21-51); MDiff Complete? YES; Metamyelocyte 2 % (0-0); Monocytes 9 % (0-10); Myelocyte 2 % (0-0); Neutrophil 70 % (42-75); Platelet Morphology Comment Appears Adequate; Polychromasia SLIGHT = 2-3 cells (100X) (0-2/hpf); Reactive Lymphocytes 2 % (0-10)
[2021-09-07] MEDS: Dexamethasone 4 MG TAB PO SCH (08:29)
[2021-09-07] MEDS: Tamsulosin HCl 0.4 MG CAP PO SCH (08:29)
[2021-09-07] MEDS: Docusate 100 MG CAP PO SCH ×2 (08:29→20:22)
[2021-09-07] MEDS: Carvedilol 25 MG TAB PO SCH ×2 (08:30→20:20)
[2021-09-07] MEDS: hydrALAZINE 25 MG TAB PO SCH ×3 (08:30→20:20)
[2021-09-07] MEDS: Potassium Chloride 20 MEQ TAB PO SCH (08:30)
[2021-09-07] MEDS: Amlodipine 10 MG TAB PO SCH (08:30)
[2021-09-07] MEDS: Heparin 5,000 UNITS/ML VIAL SC SCH ×2 (08:31→20:22)
[2021-09-07] MEDS: Famotidine/PF 20 mg/2ml Vial SLOW IVP SCH (08:31)
[2021-09-07] MEDS: Rosuvastatin 20 MG TAB PO SCH (20:20)
[2021-09-07] MEDS: Zolpidem Tartrate 5 MG TAB PO PRN (20:20)
[2021-09-07] MEDS: ALPRAZolam 0.25 MG TAB PO PRN (20:21)
[2021-09-07] MEDS: diphenhydrAMINE 25 MG CAP PO PRN (20:21)
[2021-09-08] MEDS: Sodium Chloride 0.9% 1,000 ML IV SCH ×3 (00:37→17:48)
[2021-09-08] MEDS: Albuterol 200 PUFF (6.7GM INHALER) INH SCH ×4 (02:43→14:01)
[2021-09-08] MEDS: Mometasone 200 MCG/Formoterol 5 MCG 120 PUFF INHALER INH SCH (06:26)
[2021-09-08 07:08] LABS: Anion Gap 16 mmol/L (10-20); BUN (Urea Nitrogen) 59 mg/dL (8.4-25.7); Calc. Creatinine Clearance 35 mL/min (70-130); Calcium 8.4 mg/dL (7.8-10.44); Carbon Dioxide 21 mmol/L (22-29); Chloride 111 mmol/L (98-107); Glucose 300 mg/dL (70-105); Potassium 4.3 mmol/L (3.5-5.1); Sodium 144 mmol/L (136-145)
[2021-09-08 07:09] LABS: Mean Corpuscular HGB CONC 34.5 g/dL (32.0-36.0); Mean Corpuscular Hemoglobin 29.7 pg (27.0-31.0); Mean Corpuscular Volume 86.1 fL (78.0-98.0); Mean Platelet Volume 8.3 fL (7.4-10.4); Platelet Count 248 thou/uL (130-400); RBC Distribution Width 12.8 % (11.5-14.5); White Blood Cell (WBC) Count 9.8 thou/uL (4.8-10.8)
[2021-09-08] MEDS: Docusate 100 MG CAP PO SCH (08:03)
[2021-09-08] MEDS: Potassium Chloride 20 MEQ TAB PO SCH (08:03)
[2021-09-08] MEDS: Famotidine/PF 20 mg/2ml Vial SLOW IVP SCH (08:03)
[2021-09-08] MEDS: Heparin 5,000 UNITS/ML VIAL SC SCH (08:03)
[2021-09-08] MEDS: Dexamethasone 4 MG TAB PO SCH (08:03)
[2021-09-08] MEDS: Tamsulosin HCl 0.4 MG CAP PO SCH (08:05)
[2021-09-08 08:41] LABS: Band 3 % (5-11); Lymphocytes 18 % (21-51); MDiff Complete? YES; Metamyelocyte 1 % (0-0); Monocytes 10 % (0-10); Neutrophil 68 % (42-75); Platelet Morphology Comment Appears Adequate; RBC Morphology Normal
[2021-09-08] MEDS: Carvedilol 25 MG TAB PO SCH (08:55)
[2021-09-08] MEDS: hydrALAZINE 25 MG TAB PO SCH ×2 (08:55→15:38)
[2021-09-08] MEDS: Amlodipine 10 MG TAB PO SCH (08:55)
[2021-09-08 12:47] VITALS: TEMP 97.9
[2021-09-08 15:41] VITALS: BP 159/97
== END 2021-09-08 17:30 | disposition home or self-care (01) | DRG 656 ==
LOC: SURG A 08-29 05:46 → SJJU 08-29 11:05 → EDSTATUS 08-29 11:15 → T4-B 09-01 03:05
PROVIDERS: ADMIT Urology; ATTEND Urology
PROC: 0TT00ZZ Resection of Right Kidney, Open Approach (ICD-10-PCS; principal; 2021-08-29)
PROC: 3E0333Z Introduction of Anti-inflammatory into Peripheral Vein, Percutaneous Approach (ICD-10-PCS; 2021-08-29)
PROC: 8E0ZXY6 Isolation (ICD-10-PCS; 2021-08-31)
DX: C64.1 Malignant neoplasm of right kidney, except renal pelvis (principal); U07.1 COVID-19; J96.01 Acute respiratory failure with hypoxia; J12.82 Pneumonia due to coronavirus disease 2019; N17.9 Acute kidney failure, unspecified; K56.7 Ileus, unspecified; I12.9 Hypertensive chronic kidney disease with stage 1 through stage 4 chronic kidney disease, or unspecified chronic kidney disease; E78.5 Hyperlipidemia, unspecified; M51.36 Other intervertebral disc degeneration, lumbar region; N62 Hypertrophy of breast; N40.1 Benign prostatic hyperplasia with lower urinary tract symptoms; R35.0 Frequency of micturition; F17.210 Nicotine dependence, cigarettes, uncomplicated; F41.9 Anxiety disorder, unspecified; N18.30 Chronic kidney disease, stage 3 unspecified; E66.9 Obesity, unspecified; I16.0 Hypertensive urgency; Z68.35 Body mass index [BMI] 35.0-35.9, adult; E87.6 Hypokalemia; Z79.899 Other long term (current) drug therapy
CPT/HCPCS: 36415; 36600; 71045; 71046; 76775; 80048; 80053; 81001; 82274; 82728; 82805; 83605; 83880; 84145; 84300; 85025; 85027; 85379; 85610; 85730; 86140; 86769; 86850; 86900; 86901; 87040; 87086; 87633; 88307; A4649; C1713; C1776; C1889; J0690; J1100; J1580; J1644; J1940; J1956; J2001; J2250; J2310; J2370; J2405; J2704; J3010; J3480; J3490; J7042; J7050; J8540; P9047; Q9968; S0020; S0028; U0003; U0005

== ENCOUNTER 2021-10-26 09:18 | Outpatient (CLI) | payer BC | END 2021-10-26 09:19 | disposition home or self-care (01) | LOC: BICRAD 09:18 | PROVIDERS: ATTEND Family Medicine | DX: Z09 Encounter for follow-up examination after completed treatment for conditions other than malignant neoplasm (principal); Z87.01 Personal history of pneumonia (recurrent) | CPT/HCPCS: 71046 ==

== ENCOUNTER 2022-06-05 11:35 | Outpatient (CLI) | payer BC ==
[2022-06-05 13:27] LABS: Hemoglobin 11.7 g/dL (13.5-17.5); Mean Corpuscular HGB CONC 32.7 g/dL (32.0-36.0); Mean Corpuscular Hemoglobin 27.9 pg (27.0-33.0); Mean Corpuscular Volume 85.4 fl (81.2-95.1); Mean Platelet Volume 11.2 fl (7.4-10.4); Platelet Count 207 10x3/uL (150-450); RBC Distribution Width 13.7 % (11.5-14.5); Red Blood Cell (RBC) Count 4.19 10x6/uL (4.32-5.72); White Blood Cell (WBC) Count 5.8 10x3/uL (3.5-10.5)
[2022-06-05 13:34] LABS: Anion Gap 15 mmol/L (10-20); BUN (Urea Nitrogen) 25 mg/dL (8.4-25.7); Calc. Creatinine Clearance 0 mL/min (70-130); Calcium 9.2 mg/dL (7.8-10.44); Carbon Dioxide 25 mmol/L (22-29); Chloride 106 mmol/L (98-107); Estimated GFR 32; Glucose 93 mg/dL (70-105); Potassium 4.2 mmol/L (3.5-5.1); Sodium 142 mmol/L (136-145)
== END 2022-06-05 11:36 | disposition home or self-care (01) ==
LOC: LABBT 11:35
PROVIDERS: ATTEND Orthopaedic Surgery
DX: Z01.812 Encounter for preprocedural laboratory examination (principal); Z20.822 Contact with and (suspected) exposure to COVID-19
CPT/HCPCS: 80048; 85027; 87811

== ENCOUNTER 2022-06-08 10:19 | Day surgery (SDC) | payer OTHER ==
[2022-06-07 13:53] VITALS: BMI 34.8
[2022-06-08] MEDS ORDERED: Midazolam HCl 2 mg/2 ml Vial ONE (12:07)
[2022-06-08] MEDS ORDERED: Ropivacaine 0.5% HCl/PF (150 MG/30 ML VIAL) ONE (12:07)
[2022-06-08] MEDS ORDERED: Fentanyl 100 MCG/2 ML VIAL ONE (12:07)
[2022-06-08] MEDS ORDERED: fentaNYL Citrate/PF 100 MCG/2 ML SYRINGE ONE (12:37)
[2022-06-08] MEDS ORDERED: Neomycin-Polymyxin 1 ML AMP ONE (12:39)
[2022-06-08] MEDS ORDERED: Bupivacaine 0.25% HCL 30 ML VIAL ONE (12:39)
[2022-06-08] MEDS ORDERED: EPINEPHrine 1 MG/ML AMP ONE (12:39)
[2022-06-08] MEDS ORDERED: CEFAZOLIN 2 GM VIAL ONE (12:53)
[2022-06-08] MEDS ORDERED: Sodium Chloride 0.9% 100 ML ONE (12:53)
[2022-06-08] MEDS ORDERED: Rocuronium Bromide 10 MG/ML (10ML VIAL) ONE (13:08)
[2022-06-08] MEDS ORDERED: NEOSTIGMINE 3 MG/3 ML SYR 3 MG/3 ML SYRINGE ONE (13:08)
[2022-06-08] MEDS ORDERED: Glycopyrrolate 0.2 MG/ML 5 ML SYRINGE ONE (13:08)
[2022-06-08] MEDS ORDERED: Dexamethasone 20 MG/5 ML VIAL ONE (13:08)
[2022-06-08] MEDS ORDERED: PROPOFOL 200 MG/20 ML VIAL ONE (13:08)
[2022-06-08] MEDS ORDERED: Ondansetron PF 4 MG/2 ML Vial ONE (13:08)
[2022-06-08] MEDS ORDERED: traMADol HCl 50 MG TAB PO PRN ×2 (13:30)
[2022-06-08] MEDS ORDERED: Ketorolac Tromethamine 30 MG/ML VIAL IVP PRN (13:30)
[2022-06-08] MEDS ORDERED: Zolpidem Tartrate 5 MG TAB PO PRN (13:30)
[2022-06-08] MEDS ORDERED: Ondansetron PF 4 MG/2 ML Vial IVP PRN (13:30)
[2022-06-08] MEDS ORDERED: HYDROcodone/Acetaminophen 5/325 mg Tablet PO PRN ×2 (13:30)
[2022-06-08] MEDS ORDERED: Promethazine HCl 25 MG/ML VIAL IM PRN (13:30)
[2022-06-08] MEDS ORDERED: Ropivacaine 0.2% 550 ML 550 ML NERVE BLCK SCH (13:30)
[2022-06-08] MEDS ORDERED: SUGAMMADEX SODIUM 200 MG/2 ML VIAL ONE (14:30)
[2022-06-08] MEDS ORDERED: Ketorolac Tromethamine 30 MG/ML VIAL ONE (14:58)
[2022-06-08] MEDS ORDERED: HYDROcodone/Acetaminophen 5/325 mg Tablet ONE (16:14)
== END 2022-06-08 16:47 | disposition home or self-care (01) ==
LOC: SDC 10:19
PROVIDERS: ATTEND Orthopaedic Surgery
PROC: 0RNJ4ZZ Release Right Shoulder Joint, Percutaneous Endoscopic Approach (ICD-10-PCS; principal; 2022-06-08)
PROC: 0LQ14ZZ Repair Right Shoulder Tendon, Percutaneous Endoscopic Approach (ICD-10-PCS; principal; 2022-06-08)
DX: S46.011A Strain of muscle(s) and tendon(s) of the rotator cuff of right shoulder, initial encounter (principal); M65.811 Other synovitis and tenosynovitis, right shoulder; M19.011 Primary osteoarthritis, right shoulder; M75.81 Other shoulder lesions, right shoulder; I25.10 Atherosclerotic heart disease of native coronary artery without angina pectoris; F32.A Depression, unspecified; Z79.899 Other long term (current) drug therapy; Z20.822 Contact with and (suspected) exposure to COVID-19; Z95.0 Presence of cardiac pacemaker; Z90.5 Acquired absence of kidney
CPT/HCPCS: C1713; J0171; J0690; J1100; J1885; J2250; J2405; J2704; J2795; J3010; J3490; S0020

== ENCOUNTER 2023-07-27 17:00 | Outpatient (CLI) | payer BC | END 2023-07-27 17:01 | disposition home or self-care (01) | LOC: SLEEPLAB 17:00 | PROVIDERS: ATTEND Internal Medicine | DX: G47.33 Obstructive sleep apnea (adult) (pediatric) (principal); G47.31 Primary central sleep apnea; R06.3 Periodic breathing | CPT/HCPCS: 95811 ==

== ENCOUNTER 2025-05-25 11:04 | Outpatient (CLI) | payer BC | END 2025-05-25 11:05 | disposition home or self-care (01) | LOC: BICRAD 11:04 | PROVIDERS: ATTEND Family Medicine | DX: R93.89 Abnormal findings on diagnostic imaging of other specified body structures (principal) | CPT/HCPCS: 71046 ==